=== PATIENT | male | born 1980 | race African-American/Black ===

== ENCOUNTER 2017-12-15 12:07 | Emergency (ER) | payer BC, SELFPAY ==
[2017-12-15] MEDS ORDERED: Ketorolac Tromethamine 30 MG/ML VIAL ONE (12:50)
[2017-12-15] MEDS ORDERED: Metoclopramide HCl 10 MG/2 ML VIAL ONE (12:50)
[2017-12-15] MEDS ORDERED: diphenhydrAMINE 50 MG/ML VIAL ONE (12:50)
--- NOTE | 2017-12-15 13:36 | CT ---
CT BRAIN WITHOUT CONTRAST: HISTORY: Right-sided throbbing headache. COMPARISON: None. TECHNIQUE: Multiple contiguous axial images were obtained in a CT of the brain without contrast. FINDINGS: The brain is normal in morphology and attenuation without focal lesions or confluent areas of infarct ion. There is no evidence of hydrocephalus, intracranial hemorrhage, or extraaxial fluid collection. The calvarium and overlying soft tissues are unremarkable. The visualized paranasal sinuses and mast oid air cells are well aerated. IMPRESSION: No evidence of acute intracranial abnormality. POS: [facility]
== END 2017-12-15 14:58 | disposition home or self-care (01) ==
LOC: ERS 12:07
DX: R51 Headache (principal); M41.9 Scoliosis, unspecified
CPT/HCPCS: 70450; 96365; 96375; J1200; J1885; J2765

== ENCOUNTER 2018-02-01 13:04 | Emergency (ER) | payer SELFPAY ==
--- NOTE | 2018-02-01 15:12 | RAD ---
TWO VIEW CHEST: HISTORY: Chest pain and shortness of breath. FINDINGS: Lungs are clear. Heart and mediastinum unremarkable. Osseous structures unremarkable. IMPRESSION: Unremarkable chest. POS: [facility]
[2018-02-01 15:14] LABS: #Basophils 0.1 thou/uL (0.0-0.2); #Eosinphils 0.1 thou/uL (0.0-0.7); #Lymphocytes 1.8 thou/uL (1.20-3.40); #Monocytes 0.3 thou/uL (0.11-0.59); #Neutrophils 2.9 thou/uL (1.40-6.50); %Basophils 1.3 % (0.0-1.0); %Eosinophils 2.3 % (0.0-10.0); %Lymphocytes 35.1 % (21.0-51.0); %Monocytes 6.3 % (0.0-10.0); %Neutrophils 55.1 % (42.0-75.0); Hemoglobin 12.9 g/dL (14.0-18.0); Mean Corpuscular HGB CONC 33.4 g/dL (32.0-36.0); Mean Corpuscular Hemoglobin 27.1 pg (27.0-31.0); Mean Corpuscular Volume 81.3 fL (78.0-98.0); Mean Platelet Volume 6.6 fL (7.4-10.4); Platelet Count 249 thou/uL (130-400); RBC Distribution Width 13.8 % (11.5-14.5); Red Blood Cell (RBC) Count 4.76 mill/uL (4.70-6.10); White Blood Cell (WBC) Count 5.2 thou/uL (4.8-10.8)
[2018-02-01 15:36] LABS: ALT (SGPT) 12 U/L (8-55); AST (SGOT) 12 U/L (5-34); Albumin 3.7 g/dL (3.5-5.0); Alkaline Phosphatase 79 U/L (40-150); Anion Gap 8 mmol/L (10-20); BUN (Urea Nitrogen) 9 mg/dL (8.9-20.6); Bilirubin, Total 0.6 mg/dL (0.2-1.2); Calc. Creatinine Clearance 0 mL/min (70-130); Calcium 8.7 mg/dL (7.8-10.44); Carbon Dioxide 29 mmol/L (22-29); Chloride 107 mmol/L (98-107); Estimated GFR-MDRD Greater than 90; Globulin 2.8 g/dL (2.4-3.5); Glucose 89 mg/dL (70-105); Potassium 4.2 mmol/L (3.5-5.1); Protein, Total 6.5 g/dL (6.0-8.3); Sodium 140 mmol/L (136-145)
== END 2018-02-01 16:10 | disposition home or self-care (01) ==
LOC: ERS 13:04
DX: R60.0 Localized edema (principal); M41.9 Scoliosis, unspecified
CPT/HCPCS: 71046; 80053; 83880; 85025; 93005

== ENCOUNTER 2018-08-25 21:59 | Emergency (ER) | payer SELFPAY ==
--- NOTE | 2018-08-25 22:40 | RAD ---
RIGHT FINGER THREE VIEW: 08/25/18 HISTORY: Smashed middle finger. COMPARISON: None. FINDINGS: Mildly comminuted tuft fracture distal phalanx middle finger. No other fracture appreciated. IMPRESSION: Mildly comminuted tuft fracture distal phalanx middle finger. POS: [facility]
== END 2018-08-25 23:00 | disposition home or self-care (01) ==
LOC: ERS 21:59
DX: S62.632A Displaced fracture of distal phalanx of right middle finger, initial encounter for closed fracture (principal); W22.8XXA Striking against or struck by other objects, initial encounter

== ENCOUNTER 2018-10-25 20:25 | Emergency (ER) | payer SELFPAY ==
--- NOTE | 2018-10-25 21:45 | RAD ---
EXAM: CHEST ONE VIEW HISTORY: Cough, sore throat, fever, and congestion for 5 days COMPARISON: 02/01/2018 FINDINGS: Cardiac silhouette is magnified by projection. The pulmonary vasculature is within normal limits The lungs are clear. The osseous structures are intact. There is been no interval change from prior study. IMPRESSION: No acute cardiopulmonary process.
== END 2018-10-25 23:02 | disposition home or self-care (01) ==
LOC: ERS 20:25
DX: J06.9 Acute upper respiratory infection, unspecified (principal); R03.0 Elevated blood-pressure reading, without diagnosis of hypertension; Z79.1 Long term (current) use of non-steroidal anti-inflammatories (NSAID)
CPT/HCPCS: 71045; 87081; 87430; 87804

== ENCOUNTER 2019-07-13 22:51 | Emergency (ER) | payer BC, SELFPAY ==
[2019-07-13] MEDS ORDERED: Acetaminophen 500 MG TAB ONE (23:21)
--- NOTE | 2019-07-14 07:45 | RAD ---
XR Knee Rt 4 View STANDARD HISTORY: Right knee pain FINDINGS: No fracture or dislocation is identified.
== END 2019-07-14 00:40 | disposition home or self-care (01) ==
LOC: ERS 22:51
DX: M25.561 Pain in right knee (principal)

== ENCOUNTER 2020-06-21 18:32 | Emergency (ER) | payer SELFPAY ==
[2020-06-22 01:40] LABS: SARS-CoV-2 MS2 Positive; SARS-CoV-2 N Gene Negative; SARS-CoV-2 S Gene Negative; SARS-CoV-2 by NAA Not Detected (NotDetected); SARS-CoV-2 orf1ab Negative
== END 2020-06-21 20:40 | disposition home or self-care (01) ==
LOC: ERS 18:32
DX: J06.9 Acute upper respiratory infection, unspecified (principal); Z20.822 Contact with and (suspected) exposure to COVID-19
CPT/HCPCS: 87635; 99283; U0003; U0005

== ENCOUNTER 2020-09-04 18:38 | Emergency (ER) | payer BC, SELFPAY ==
[2020-09-04] MEDS ORDERED: Morphine 4 MG/ML VIAL ONE (20:01)
[2020-09-04] MEDS ORDERED: Ketorolac Tromethamine 30 MG/ML VIAL ONE (20:01)
== END 2020-09-04 20:07 | disposition home or self-care (01) ==
LOC: ERS 18:38
DX: M25.551 Pain in right hip (principal)
CPT/HCPCS: 96372; J1885; J2270